=== PATIENT | female | born 1975 | race Two or more races ===

== ENCOUNTER 2018-08-14 18:31 | Emergency (ER) | payer OTHER ==
[~2018-08-14] VITALS: Ht 152.4 cm; Wt 113.4 kg
[2018-08-14 19:55] LABS: Basophils # (auto) 0 uL; Basophils % (auto) 0.5 % (0.0-2.0); Eosinophils # (auto) 0.4 uL; Eosinophils % (auto) 5.7 % (0.0-7.0); Hematocrit 41.8 % (36.0-46.0); Hemoglobin 13.6 g/dL (12.2-16.2); Lymphocytes # (auto) 1.9 uL; Lymphocytes % (auto) 27.3 % (10.0-50.0); Mean Corpuscular Hemoglobin 29.7 pg (28.0-32.0); Mean Corpuscular Hgb Conc. 32.6 g/dL (32.0-36.0); Mean Corpuscular Volume 91.1 fL (80.0-100.0); Monocytes # (auto) 0.5 uL; Monocytes % (auto) 7.9 % (0.0-12.0); Neutrophils % (auto) 58.6 % (37.0-80.0); Platelet Count (auto) 198 10^3/uL (140-450); Red Blood Cells 4.59 10^6/uL (4.0-5.20); Red Cell Distribution Width 14.4 % (11.8-14.3); White Blood Cell 6.9 10^3/uL (4.4-10.8)
[2018-08-14 20:14] LABS: Alanine Aminotransferase 106 U/L (13-56); Albumin 3.2 g/dL (3.4-5.0); Anion Gap 5 (5-15); Aspartate Aminotransferase 76 U/L (15-37); Blood Urea Nitrogen 11 mg/dL (7-18); Calcium 8.2 mg/dL (8.5-10.1); Carbon Dioxide 29 mmol/L (21-32); Chloride 109 mmol/L (98-107); Glucose 118 mg/dL (74-106); Potassium 3.7 mmol/L (3.5-5.1); Sodium 143 mmol/L (136-145)
[2018-08-14 20:19] LABS: Alkaline Phosphatase 73 U/L (45-117); Bilirubin, Total 0.3 mg/dL (0.2-1.0); GFR African American 102 mL/min; GFR Non-African American 84 mL/min
[2018-08-14 21:04] LABS: BUN/Creatinine Ratio 13.9
[2018-08-14 21:45] VITALS: BP 164/80
== END 2018-08-14 22:06 | disposition home or self-care (01) ==
LOC: ER 18:35
DX: R07.89 Other chest pain (principal); R42 Dizziness and giddiness; R11.10 Vomiting, unspecified
CPT/HCPCS: 36415; 71046; 80053; 84484; 85025; 93005; 94761